=== PATIENT | male | born 1950 | race Two or more races ===

== ENCOUNTER → 2024-02-20 | Outpatient (CLI) | payer OTHER, SELFPAY ==
[2024-02-20 10:01] LABS: Alanine Aminotransferase 31 U/L (10-49); Albumin, Serum 4.9 gm/dL (3.4-4.8); Albumin/Globulin Ratio 1.8 (1.2-2.2); Alkaline Phosphatase 110 U/L (46-116); Anion Gap 9 (7-16); Aspartate Amino Transferase 22 U/L (0-34); BUN/Creatinine Ratio 14 Ratio (12-20); Bilirubin,Total 0.8 mg/dL (0.3-1.2); Blood Urea Nitrogen 11 mg/dL (9-23); Carbon Dioxide 25.8 mMol/L (20.0-31.0); Cardiac Risk Estimate 2.7 RATIO (4.0-6.7); Chloride 105 mMol/L (98-107); Cholesterol 148 mg/dL (132-200); Creatinine (Component) 0.8 mg/dL (0.6-1.3); Globulin 2.8 gm/dL (2.3-3.5); Glucose 136 mg/dL (74-106); HDL Cholesterol 54 mg/dL (40-60); LDL Cholesterol,Calculated 71 mg/dL (0-130); Osmolality,Calculated 280 (275-295); Potassium 3.6 mMol/L (3.4-5.1); Sodium 140 mMol/L (136-145); Total Protein 7.7 gm/dL (5.7-8.2); Triglycerides 113 mg/dL (30-150); eGFR > 60 See Note
[2024-02-20 10:09] LABS: Glucose Estimated Average 126 mg/dL (80-131)
== END | disposition home or self-care (01) ==
LOC: COPL 07:55
PROVIDERS: PCP Family Medicine; Referring Provider Family Medicine; Visit Provider Family Medicine
DX: E11.9 Type 2 diabetes mellitus without complications (principal); I10 Essential (primary) hypertension; E78.2 Mixed hyperlipidemia
CPT/HCPCS: 36415; 80053; 80061; 83036

== ENCOUNTER 2024-03-05 10:55 | Day surgery (SDC) | payer OTHER, SELFPAY ==
[2024-02-29 12:05] VITALS: BMI 27.0
[2024-03-05] VITALS (8 sets, daily range): BP systolic 123–163; BP diastolic 80–91; PULSE 59–79; RESP 13–24; TEMP 37.1; O2SAT 95–99; BMI 26.4
[2024-03-05] MEDS: MIDAZOLAM INJ 1 MG/ML VIAL 2 ML (ASD USE ONLY) 2 MG IV (12:56)
[2024-03-05] MEDS: DiphenhydrAMINE INJ 50 MG/ML VIAL 25 MG IV (12:56)
[2024-03-05] MEDS: fentaNYL CIT INJ 50 mCg/ML AMP 2ML (ASD USE ONLY) IV (12:56)
--- NOTE | 2024-03-05 14:51 | SUR.PHASEII ---
1316: Pt into recovery. Pt sleepy. Easily aroused. Resp even, unlabored. VS stable. Denies pain. 1340: Pt more awake, alert. Sitting up tolerating po fluids with no difficulty swallowing and no n/v. 1400: Pt fully awake, oriented x3. Pt assisted to restroom. Ambulation steady. Pt and stated understanding of discharge instructions. Pt discharged from [facility] in stable condition.
== END 2024-03-05 14:00 | disposition home or self-care (01) ==
PROVIDERS: PCP Family Medicine; Referring Provider Specialist; Visit Provider Specialist
PROC: 0DBE8ZX Excision of Large Intestine, Via Natural or Artificial Opening Endoscopic, Diagnostic (ICD-10-PCS; CPT 45380; principal; 2024-03-05 11:00)
DX: D12.3 Benign neoplasm of transverse colon (principal); D12.8 Benign neoplasm of rectum; K64.9 Unspecified hemorrhoids; K57.30 Diverticulosis of large intestine without perforation or abscess without bleeding
CPT/HCPCS: 45385; J1200; J2250; J3010

== ENCOUNTER → 2024-03-27 | Outpatient (CLI) | payer OTHER, SELFPAY ==
--- NOTE | 2024-03-27 10:00 | XR_ITS ---
Examination: Abdomen sonogram, complete Date and time of exam: March 27, 2024. 10:07 AM Technique: Multiple real-time grayscale transabdominal sonographic images of the abdomen have been obtained. Indications: Mid abdominal pain beginning one week ago Findings: Normal gallbladder Normal common bile duct 0.3 cm Pancreatic head 2.5 cm Aorta not enlarged Liver 13.2 cm fatty infiltration no focal liver lesions Normal hepatopedal portal venous flow Patent IVC Right kidney 10.3 x 6.3 x 5.7 cm renal cortex 2.1 cm Left kidney 11.5 x 5.5 x 5.6 cm renal cortex 1.9 cm Mild renal parenchymal scar formation No hydronephrosis Spleen 9.0 cm Impression: Normal gallbladder Normal common bile duct Fatty liver Mild bilateral renal parenchymal scar formation
--- NOTE | 2024-03-27 10:00 | XR_ITS ---
Examination: Bone densitometry Date and time of exam:March 27, 2024 1008 hrs. Indications: 73-year-old male with diagnosis age related osteoporosis calcium one year Technique: Lumbar spine and hip total bone mineralization values of an calculated. Peak reference and age match control results have been displayed. Findings: Lumbar spine total bone mineralization is1.196 gm/cm2. This is 1.0 standard deviations above peak reference. This is 1.9 standard deviations above age-matched controls. Hip total bone mineralization is 1.033 gm/cm2 This is 0.0 standard deviations at peak reference. This is 0.8 standard deviations above age-matched controls Impression: There is normal mineralization based on lumbar spine measurements. There is osteopenia based on hip measurements Lumbar mineralization is increased 5.8% compared with December 01, 2021 Hip mineralization is increased 2.7% compared with December 01, 2021
== END | disposition home or self-care (01) ==
PROVIDERS: PCP Family Medicine; Referring Provider Specialist; Visit Provider Family Medicine
DX: M85.88 Other specified disorders of bone density and structure, other site (principal); K76.0 Fatty (change of) liver, not elsewhere classified; N28.89 Other specified disorders of kidney and ureter
CPT/HCPCS: 76700; 77080

== ENCOUNTER → 2024-06-08 | Outpatient (CLI) | payer OTHER, SELFPAY ==
[2024-06-08 08:10] LABS: Collection Type, Urine Clean Catch; Squamous Epithelial Cell,Urine 0 /hpf (0-5)
[2024-06-08 08:33] LABS: Bilirubin,Urine Negative (Negative); Blood,Urine Negative (Negative); Clarity,Urine Clear (Clear/Hazy); Color,Urine Lt-Yellow (Lt Yel-Yel); Glucose, Urine Negative (Negative); Ketones,Urine Negative (Negative); Leukocyte Esterase,Urine Negative (Negative); Nitrite,Urine Negative (Negative); PH,Urine 6.5 (5.0-7.0); Protein,Urine Negative (Neg - Trace); RBC,Urine 2 /hpf (0-3); Specific Gravity,Urine 1.015 (1.001-1.035); Urobilinogen,Urine Negative mg/dL (0.0-1.0); WBC,Urine 1 /hpf (0-5)
[2024-06-08 08:42] LABS: Basophils # (Auto) 0.1 Thou/mm3 (0.0-0.2); Basophils % (Auto) 1 % (0-2.5); Eosinophils # (Auto) 0.4 Thou/mm3 (0.0-0.5); Eosinophils % (Auto) 6 % (0-10); Hematocrit 43.6 % (41.0-53.0); Hemoglobin 15.2 g/dL (13.5-16.0); Immature Granulocytes % (Auto) 0 % (0-0); Immature Granulocytes Auto 0.02 Thou/mm3 (0.00-0.00); Lymphocytes # (Auto) 2.2 Thou/mm3 (1.0-4.8); Lymphocytes % (Auto) 33 % (10-50); Mean Corpuscular HGB Conc 34.9 g/dl (31.0-37.0); Mean Corpuscular Hemoglobin 31.2 pg (25.0-35.0); Mean Corpuscular Volume 90 fL (80-100); Monocytes # (Auto) 0.8 Thou/mm3 (0.0-0.8); Monocytes % (Auto) 12 % (0-12); Neutrophils # (Auto) 3.2 Thou/mm3 (1.8-7.7); Neutrophils % (Auto) 48 % (37-80); Nucleated Red Blood Cell % 0 /100 WBC (0); Platelet Count 254 Thou/mm3 (140-440); RDW Standard Deviation 42.6 fL (35.1-43.9); Red Blood Count 4.87 Miln/mm3 (4.50-5.90); White Blood Count 6.7 Thou/mm3 (3.8-10.6)
[2024-06-08 08:45] LABS: Creatinine MALB Rnd Ur 76 mg/dL (30-125); Microalbumin Creat Ratio 11 mg/gCrea (<30); Microalbumin, Random Urine 8 mg/L (0-300)
[2024-06-08 09:15] LABS: Glucose Estimated Average 137 mg/dL (80-131); Hemoglobin A1C 6.4 % Hgb (4.8-6.0)
[2024-06-08 09:18] LABS: Alanine Aminotransferase 27 U/L (10-49); Albumin, Serum 4.5 gm/dL (3.4-4.8); Albumin/Globulin Ratio 1.6 (1.2-2.2); Alkaline Phosphatase 105 U/L (46-116); Anion Gap 12 (7-16); Aspartate Amino Transferase 30 U/L (0-34); BUN/Creatinine Ratio 17 Ratio (12-20); Bilirubin,Total 0.6 mg/dL (0.3-1.2); Blood Urea Nitrogen 15 mg/dL (9-23); Calcium 9.8 mg/dL (8.3-10.6); Calcium (Corrected) 9.8 mg/dL (8.5-10.1); Carbon Dioxide 25.9 mMol/L (20.0-31.0); Cardiac Risk Estimate 2.7 RATIO (4.0-6.7); Chloride 103 mMol/L (98-107); Cholesterol 150 mg/dL (132-200); Creatinine (Component) 0.9 mg/dL (0.6-1.3); Free T4 (Free Thyroxine) 1.37 ng/dL (0.89-1.76); Globulin 2.8 gm/dL (2.3-3.5); Glucose 150 mg/dL (74-106); HDL Cholesterol 56 mg/dL (40-60); LDL Cholesterol,Calculated 74 mg/dL (0-130); Osmolality,Calculated 285 (275-295); Potassium 3.9 mMol/L (3.4-5.1); Sodium 141 mMol/L (136-145); Thyroid Stimulating Hormone 1.12 uIU/mL (0.55-4.78); Total Protein 7.3 gm/dL (5.7-8.2); Triglycerides 102 mg/dL (30-150); Uric Acid 5.9 mg/dL (3.7-9.2); eGFR > 60 See Note
== END | disposition home or self-care (01) ==
LOC: COPL 07:37
PROVIDERS: PCP Family Medicine; Referring Provider Family Medicine; Visit Provider Family Medicine
DX: Z00.00 Encounter for general adult medical examination without abnormal findings (principal); E11.9 Type 2 diabetes mellitus without complications; I10 Essential (primary) hypertension; E79.0 Hyperuricemia without signs of inflammatory arthritis and tophaceous disease; E04.1 Nontoxic single thyroid nodule; E07.9 Disorder of thyroid, unspecified; E78.2 Mixed hyperlipidemia
CPT/HCPCS: 36415; 80053; 80061; 81001; 82043; 82570; 83036; 84439; 84443; 84550; 85025

== ENCOUNTER → 2025-02-11 | Outpatient (CLI) | payer OTHER, SELFPAY ==
[2025-02-11 08:54] LABS: Glucose Estimated Average 126 mg/dL (80-131); Hemoglobin A1C 6.0 % Hgb (4.8-6.0)
[2025-02-11 08:59] LABS: Alanine Aminotransferase 23 U/L (10-49); Albumin, Serum 4.9 gm/dL (3.4-4.8); Albumin/Globulin Ratio 2.0 (1.2-2.2); Alkaline Phosphatase 68 U/L (46-116); Anion Gap 10 (7-16); Aspartate Amino Transferase 25 U/L (0-34); BUN/Creatinine Ratio 16 Ratio (12-20); Bilirubin,Total 0.9 mg/dL (0.3-1.2); Blood Urea Nitrogen 13 mg/dL (9-23); Calcium 9.5 mg/dL (8.3-10.6); Calcium (Corrected) 9.5 mg/dL (8.5-10.1); Carbon Dioxide 27.4 mMol/L (20.0-31.0); Cardiac Risk Estimate 3.0 RATIO (4.0-6.7); Chloride 105 mMol/L (98-107); Cholesterol 150 mg/dL (132-200); Creatinine (Component) 0.8 mg/dL (0.6-1.3); Globulin 2.4 gm/dL (2.3-3.5); Glucose 124 mg/dL (74-106); HDL Cholesterol 50 mg/dL (40-60); LDL Cholesterol,Calculated 78 mg/dL (0-130); Osmolality,Calculated 284 (275-295); Potassium 4.0 mMol/L (3.4-5.1); Sodium 142 mMol/L (136-145); Total Protein 7.3 gm/dL (5.7-8.2); Triglycerides 110 mg/dL (30-150); eGFR > 60 See Note
== END | disposition home or self-care (01) ==
LOC: COPL 07:44
PROVIDERS: PCP Family Medicine; Referring Provider Family Medicine; Visit Provider Family Medicine
DX: E11.69 Type 2 diabetes mellitus with other specified complication (principal); E78.2 Mixed hyperlipidemia; I10 Essential (primary) hypertension
CPT/HCPCS: 36415; 80053; 80061; 83036